=== PATIENT | male | born 1990 | race Hispanic/Latino ===

== ENCOUNTER → 2024-04-13 | Outpatient (CLI) | payer OTHER ==
--- NOTE | 2024-04-13 10:33 | HMCIMG ---
US ABDOMINAL RUQ\[id number] HISTORY: Liver cirrhosis COMPARISON: None TECHNIQUE: Right upper quadrant abdominal ultrasound study was performed. FINDINGS: Liver measures 15.8 cm. The visualized portion of the pancreas is within normal limits. Liver is echogenic consistent with liver parenchymal disease. No gallstone is seen. Common duct measures 3 mm. No evidence of gallbladder wall thickening is seen. Right kidney measures 11.1 x 4.6 x 4.5 cm. No hydronephrosis is seen of the right kidney. Small ascites is seen. IMPRESSION: 1. No gallstones or ductal dilatation is seen. Small ascites. 2. No hydronephrosis is seen.
== END | disposition home or self-care (01) ==
LOC: EEVIPCON 08:00 → RAH 08:16
PROVIDERS: ATTEND Physical Medicine & Rehabilitation
DX: K74.60 Unspecified cirrhosis of liver (principal)
CPT/HCPCS: 76705